=== PATIENT | male | born 2000 | race Caucasian/White ===

== ENCOUNTER 2020-06-15 20:31 | Emergency (ER) | payer OTHER, SELFPAY ==
[~2020-06-15] VITALS: Ht 172.7 cm; Wt 117.9 kg
[2020-06-15 20:58] VITALS: Ht 172.7 cm; Wt 117.9 kg
[2020-06-15 21:43] VITALS: BP 143/91
== END 2020-06-15 21:45 | disposition home or self-care (01) ==
LOC: ED 20:31
DX: U07.1 COVID-19 (principal)
CPT/HCPCS: Q0092; U0003-CS